=== PATIENT | male | born 1970 | race Caucasian/White ===

== ENCOUNTER → 2017-06-12 | Outpatient (CLI) | payer MEDICAID | LOC: ZCOL.LAB 23:08 | DX: E11.621 Type 2 diabetes mellitus with foot ulcer (principal) ==

== ENCOUNTER → 2017-07-29 | Outpatient (CLI) | payer MEDICAID | LOC: COL.RAD 13:30 | DX: L02.612 Cutaneous abscess of left foot (principal); L03.116 Cellulitis of left lower limb; M14.672 Charcot's joint, left ankle and foot; M86.8X7 Other osteomyelitis, ankle and foot; I73.9 Peripheral vascular disease, unspecified | CPT/HCPCS: Q9967 ==

== ENCOUNTER 2017-08-12 09:13 | Day surgery (SDC) | payer MEDICAID ==
[2017-08-12] VITALS (12 sets, daily range): BP systolic 132–1388; BP diastolic 76–88; PULSE 86–105; TEMP 97.4
[~2017-08-12] VITALS: Ht 188 cm; Wt 95.1 kg
[2017-08-12] MEDS ORDERED: GLUCOTROL10 MG PO (09:28)
[2017-08-12] MEDS ORDERED: JANUVIA25 MG PO (09:29)
[2017-08-12] MEDS ORDERED: COZAAR 50MG50 MG/TAB PO (09:29)
[2017-08-12] MEDS ORDERED: GLUCOPHAGE500 MG/TAB PO (09:30)
[2017-08-12 10:08] LABS: HEMATOCRIT 29.2 % (42.0-52.0); HEMOGLOBIN 9.9 g/dl (13.5-18.0); MEAN CELL VOLUME 85 fl (80.0-100.0); MEAN CORPUSCULAR HEMOGLOBIN 29 pg (27.0-31.0); MEAN CORPUSCULAR HGB CONC 34 g/dl (33.0-37.0); MEAN PLATELET VOLUME 7.9 fl (7.4-10.4); PLATELET COUNT 352 K/mm3 (130-400); RED BLOOD COUNT 3.45 M/mm3 (4.20-5.60); REDCELL DISTRIBUTION WIDTH-CV 12.9 % (11.5-14.5)
[2017-08-12 10:17] LABS: CREATININE, serum 0.79 mg/dL (0.66-1.25)
== END 2017-08-12 17:35 | disposition home or self-care (01) ==
LOC: COL.CAR 09:13
PROVIDERS: Radiology Diagnostic Radiology
DX: I70.92 Chronic total occlusion of artery of the extremities (principal)
CPT/HCPCS: C1724; C1725; C1760; C1769; C1773; C1887; C1894; J1644; J2250; J2704; J3010; J7030; Q9967

== ENCOUNTER 2017-08-15 11:08 | Inpatient (IN) | payer MEDICAID ==
[~2017-08-15] VITALS: Ht 188 cm; Wt 95.4 kg
[~2017-08-15 11:08] MED LIST: COZAAR 50MG50 MG/TAB PO; GLUCOPHAGE500 MG/TAB PO; GLUCOTROL10 MG PO; JANUVIA25 MG PO
[2017-08-16] VITALS (12 sets, daily range): BP systolic 100–158; BP diastolic 65–89; PULSE 91–104; TEMP 98.1–99.4
[2017-08-16] MEDS ORDERED: JANUVIA 100MG100 MG PO (05:34)
[2017-08-16] MEDS ORDERED: HERBAL TEA PO (11:02)
[2017-08-16] MEDS ORDERED: [UNRECOGNIZED DRUG - OTHER] PO (11:02)
[2017-08-16] MEDS ORDERED: SEPTRA DS 8001 TAB PO (11:06)
[2017-08-17 01:29] VITALS: BP 130/71; PULSE 95; TEMP 98.5
[2017-08-17 05:11] VITALS: BP 133/78; PULSE 105; TEMP 98.7
[2017-08-17 09:02] LABS: HEMATOCRIT 22.8 % (42.0-52.0); HEMOGLOBIN 7.7 g/dl (13.5-18.0)
[2017-08-17 11:35] VITALS: BP 142/81; PULSE 105; TEMP 99.4
[2017-08-17 16:00] VITALS: BP 146/81; PULSE 113; TEMP 98.6
[2017-08-17 19:00] VITALS: BP 153/87; PULSE 118; TEMP 99.7
[2017-08-17 21:26] VITALS: BP 163/82; PULSE 120; TEMP 99.3
[2017-08-18] VITALS (16 sets, daily range): BP systolic 119–152; BP diastolic 64–80; PULSE 90–124; TEMP 98–99.7
[2017-08-18 08:10] LABS: HEMATOCRIT 20.8 % (42.0-52.0); HEMOGLOBIN 6.9 g/dl (13.5-18.0)
[2017-08-18 18:30] LABS: HEMATOCRIT 27.5 % (42.0-52.0); HEMOGLOBIN 9.1 g/dl (13.5-18.0)
[2017-08-19 01:33] VITALS: BP 138/67; PULSE 107; TEMP 98.4
[2017-08-19 05:24] VITALS: BP 145/71; PULSE 104; TEMP 98.8
[2017-08-19 11:14] VITALS: BP 140/68; PULSE 98; TEMP 98.6
[2017-08-19 14:38] VITALS: BP 137/66; PULSE 102; TEMP 98.7
[2017-08-20] MEDS ORDERED: ASPI325T6 PO (14:57)
[2017-08-20] MEDS ORDERED: TYLENOL 325MG325 MG PO (14:57)
[2017-08-20] MEDS ORDERED: ULTRAM 50MG TAB50 MG PO (14:59)
[2017-08-20] MEDS ORDERED: ROXICODONE 55 MG/TAB PO (14:59)
== END 2017-08-19 18:54 | DRG 617 ==
LOC: SURG 08-16 09:30 → INPTSU 08-16 09:30 → SURG 08-16 10:30 → INPTSU 08-16 15:35 → SURG 08-19 18:54
PROVIDERS: Orthopaedic Surgery
PROC: 0Y6J0Z1 Detachment at Left Lower Leg, High, Open Approach (ICD-10-PCS; principal; 2017-08-16 10:30)
DX: E11.621 Type 2 diabetes mellitus with foot ulcer (principal); L97.428 Non-pressure chronic ulcer of left heel and midfoot with other specified severity; M86.172 Other acute osteomyelitis, left ankle and foot; L03.116 Cellulitis of left lower limb; E11.69 Type 2 diabetes mellitus with other specified complication; I10 Essential (primary) hypertension; E11.42 Type 2 diabetes mellitus with diabetic polyneuropathy
CPT/HCPCS: A9284; J0690; J1815; J2175; J2250; J2270; J2405; J2704; J3010; J7030; P9016

== ENCOUNTER 2017-08-19 15:31 | Inpatient (IN) | payer MEDICAID, OTHER ==
[~2017-08-19] VITALS: Ht 188 cm; Wt 92.4 kg
[~2017-08-19 15:31] MED LIST changes: +HERBAL TEA PO; +JANUVIA 100MG100 MG PO; +SEPTRA DS 8001 TAB PO; +[UNRECOGNIZED DRUG - OTHER] PO
[2017-08-19 20:33] VITALS: BP 133/75; PULSE 100; TEMP 98.2
[2017-08-20 06:00] VITALS: BP 140/79; PULSE 105; TEMP 99.4
[2017-08-20] MEDS ORDERED: ASPI325T6 PO (14:57)
[2017-08-20] MEDS ORDERED: TYLENOL 325MG325 MG PO (14:57)
[2017-08-20] MEDS ORDERED: ROXICODONE 55 MG/TAB PO (14:59)
[2017-08-20] MEDS ORDERED: ULTRAM 50MG TAB50 MG PO (14:59)
[2017-08-20 17:41] VITALS: BP 137/80; PULSE 104; TEMP 98.4
[2017-08-21 06:04] VITALS: BP 153/81; PULSE 104; TEMP 97.6
[2017-08-21 07:15] LABS: BASO % 0.2 % (0.0-2.0); EOS # 0.2 (0.0-0.7); EOS % 2.1 % (0-4.0); GRAN # 5.2 (1.4-6.5); GRAN % 62.9 % (42.2-75.2); LYMPH # 1.9 (1.2-3.4); LYMPH % 22.3 % (20.0-51.0); MEAN CELL VOLUME 86 fl (80.0-100.0); MEAN CORPUSCULAR HGB CONC 33 g/dl (33.0-37.0); MEAN PLATELET VOLUME 8.3 fl (7.4-10.4); MONO % 12.1 % (1.7-9.3); PLATELET COUNT 327 K/mm3 (130-400); RED BLOOD COUNT 2.95 M/mm3 (4.20-5.60); REDCELL DISTRIBUTION WIDTH-CV 13.5 % (11.5-14.5)
[2017-08-21 07:20] LABS: HEMATOCRIT 25.4 % (42.0-52.0); HEMOGLOBIN 8.3 g/dl (13.5-18.0); MEAN CORPUSCULAR HEMOGLOBIN 28 pg (27.0-31.0)
[2017-08-21 07:26] LABS: CALCIUM 8.7 mg/dL (8.4-10.2); CREATININE, serum 0.63 mg/dL (0.66-1.25); MAGNESIUM 1.6 mg/dL (1.6-2.3); POTASSIUM 3.8 mmol/L (3.4-5.0)
[2017-08-21 17:09] VITALS: BP 138/77; PULSE 104; TEMP 98.4
[2017-08-22 06:05] VITALS: BP 142/84; PULSE 100; TEMP 98.2
[2017-08-22 15:35] VITALS: BP 162/78; PULSE 102; TEMP 97.6
[2017-08-23 05:49] VITALS: BP 135/65; PULSE 82; TEMP 98.2
[2017-08-23 07:24] LABS: HEMOGLOBIN 8.5 g/dl (13.5-18.0)
[2017-08-23 16:16] VITALS: BP 152/80; PULSE 95; TEMP 98.8
[2017-08-24 05:39] VITALS: BP 128/79; PULSE 91; TEMP 98.8
[2017-08-24 16:12] VITALS: BP 108/39; PULSE 100; TEMP 99.1
[2017-08-24 16:19] VITALS: BP 141/77; PULSE 105; TEMP 99.1
[2017-08-25 06:09] VITALS: BP 138/76; PULSE 91; TEMP 98.4
[2017-08-25 15:44] VITALS: BP 120/73; PULSE 89; TEMP 98.2
[2017-08-26 05:28] VITALS: BP 143/77; PULSE 86; TEMP 97.9
[2017-08-26 16:21] VITALS: BP 122/72; PULSE 98; TEMP 97.6
[2017-08-27 06:00] VITALS: BP 146/84; PULSE 88; TEMP 97.5
[2017-08-27 16:05] VITALS: BP 132/77; PULSE 97; TEMP 98.7
[2017-08-28 05:39] VITALS: BP 149/89; PULSE 87; TEMP 97.2
[2017-08-28] MEDS ORDERED: MUCINEX 60600 MG/TA1 PO (12:14)
[2017-08-28] MEDS ORDERED: FERROUS SU325 MG/TAB PO (12:14)
[2017-08-28] MEDS ORDERED: GLUCOSE TEST ST1 DEV MC (12:15)
[2017-08-28] MEDS ORDERED: LANCETS MC (12:15)
[2017-08-28] MEDS ORDERED: LEVEMIR FLEX100 U/ML SQ (12:15)
[2017-08-28] MEDS ORDERED: GLUCAGON EMERGEN1 M1 SQ (12:15)
[2017-08-28] MEDS ORDERED: FREESTYLE PREC1 EAC5 MC (12:15)
== END 2017-08-28 17:30 | disposition home or self-care (01) | DRG 560 ==
PROVIDERS: Internal Medicine
DX: Z47.81 Encounter for orthopedic aftercare following surgical amputation (principal); M86.672 Other chronic osteomyelitis, left ankle and foot; E11.621 Type 2 diabetes mellitus with foot ulcer; E11.69 Type 2 diabetes mellitus with other specified complication; I10 Essential (primary) hypertension; Z89.512 Acquired absence of left leg below knee; E11.65 Type 2 diabetes mellitus with hyperglycemia; D64.9 Anemia, unspecified
CPT/HCPCS: 99222-AI; 99232-AI; 99239; J1815

== ENCOUNTER 2020-06-22 15:46 | Inpatient (IN) | payer MEDICARE, OTHER ==
[~2020-06-22] VITALS: Ht 188 cm; Wt 95.7 kg
[~2020-06-22 15:46] MED LIST changes: +ASPI325T6 PO; +FERROUS SU325 MG/TAB PO; +FREESTYLE PREC1 EAC5 MC; +GLUCAGON EMERGEN1 M1 SQ; +GLUCOSE TEST ST1 DEV MC; +LANCETS MC; +LEVEMIR FLEX100 U/ML SQ; +MUCINEX 60600 MG/TA1 PO; +ROXICODONE 55 MG/TAB PO; +TYLENOL 325MG325 MG PO; +ULTRAM 50MG TAB50 MG PO
--- NOTE | 2020-06-22 19:00 | NUR ---
PT ARRIVES TO ROOM 348 VIA W/C. IS ALERT AND ORIENTED X4. BROUGHT HOME MEDS WITH HIM. HAS HX OF LEFT BKA 2019. HAS WOUND TO RIGHT FOOT.
[2020-06-22] MEDS ORDERED: ASPIRIN E.C. 8181 MG PO (19:43)
[2020-06-22] MEDS ORDERED: MEGARED OMEGA-1 EAC5 PO (19:48)
[2020-06-22] MEDS ORDERED: PLAVIX 75MG TAB75 MG PO (20:01)
[2020-06-22] MEDS ORDERED: LEVEMIR FLEX100 U/ML SQ (20:07)
[2020-06-22] MEDS ORDERED: NORVASC2.5 MG PO (20:08)
[2020-06-22] MEDS ORDERED: GLUCOPHAGE XR500 M1 PO (20:09)
[2020-06-22 21:23] LABS: BASO % 0.4 % (0.0-2.0); EOS # 0.1 (0.0-0.7); GRAN # 6.1 (1.4-6.5); GRAN % 65.8 % (42.2-75.2); HEMATOCRIT 40.3 % (42.0-52.0); HEMOGLOBIN 13.4 g/dl (13.5-18.0); LYMPH # 2.2 (1.2-3.4); LYMPH % 23.5 % (20.0-51.0); MEAN CELL VOLUME 87 fl (80.0-100.0); MEAN CORPUSCULAR HEMOGLOBIN 29 pg (27.0-31.0); MEAN CORPUSCULAR HGB CONC 33 g/dl (33.0-37.0); MEAN PLATELET VOLUME 8.3 fl (7.4-10.4); MONO # 0.9 (0.1-0.6); MONO % 9.1 % (1.7-9.3); PLATELET COUNT 353 K/mm3 (130-400); RED BLOOD COUNT 4.63 M/mm3 (4.20-5.60); REDCELL DISTRIBUTION WIDTH-CV 13.5 % (11.5-14.5)
[2020-06-22 21:34] LABS: ALBUMIN 4.7 gm/dL (3.5-5.0); BILIRUBIN,TOTAL 0.5 mg/dL (0.0-1.0); C-REACTIVE PROTEIN 2.2 mg/dL (0.0-0.9); CALCIUM 9.7 mg/dL (8.4-10.2); CREATININE, serum 1.37 (0.66-1.25); PARTIAL THROMBOPLASTIN TIME 42.6 SECONDS (26.0-37.0); POTASSIUM 4.7 mmol/L (3.4-5.0); TOTAL PROTEIN 9.2 gm/dL (6.4-8.2)
--- NOTE | 2020-06-22 22:30 | NUR ---
STARTED #18G INSYTE TO RIGHT FOREARM ON 3RD ATTEMPT. PT IS IN BED, AIR MATTRESS APPLIED TO BED FOR COMFORT. WOUND TO RIGHT FOOT CULTURED AND NEW DRSG APPLIED. IV ANTIBIOTIC INFUSING WITHOUT PROBLEM. WILL BE NPO AFTER MIDNIGHT.
--- NOTE | 2020-06-22 22:42 | NUR ---
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 WILL THEN START A MAINTENANCE REGIMEN OF 1.75 GM Q12H. WILL FOLLOW RENAL FUNCTION, MICRO, AND THERAPY PLANS FOR NEED TO ADJUST DOSING, THANK YOU FOR THIS DOSING CONSULT!
--- NOTE | 2020-06-22 23:10 | NUR ---
CONSENT FOR SURGERY SIGNED. IV INFUSING TO RIGHT FOREARM WITHOUT PROBLEM. BS=87. HAS SNACK OF GRAHM CRACKERS AND TEA.
[2020-06-22 23:52] VITALS: BP 174/91; PULSE 107; TEMP 98.4
[2020-06-23] VITALS (11 sets, daily range): BP systolic 125–167; BP diastolic 73–92; PULSE 81–100; TEMP 98–98.7
[2020-06-23 02:25] LABS: COLLECTION METHOD CLEAN CATCH
[2020-06-23 02:30] LABS: PH 5 (5-8); SQUAMOUS EPITHELIAL 0-2 /hpf; URINE APPEARANCE Clear; URINE BACTERIA None Seen /hpf; URINE BILIRUBIN Negative (NEGATIVE); URINE BLOOD Negative (NEGATIVE); URINE COLOR Straw; URINE GLUCOSE Negative (NEGATIVE); URINE KETONE Trace (NEGATIVE); URINE LEUKOCYTE ESTERASE Negative (NEGATIVE); URINE NITRATE Negative (NEGATIVE); URINE PROTEIN(semi-quant) 1+ (NEGATIVE); URINE RBC 0-2 /hpf; URINE UROBILINOGEN Negative (NEGATIVE)
--- NOTE | 2020-06-23 05:00 | NUR ---
IV Cefepime given. Pt reports eating a grahm cracker, as he felt his blood sugar was low. Reminded pt of his NPO status.
[2020-06-23 07:28] LABS: CALCIUM 8.8 mg/dL (8.4-10.2); CREATININE, serum 1.15 (0.66-1.25); POTASSIUM 3.7 mmol/L (3.4-5.0)
[2020-06-23 07:35] LABS: BASO % 0.5 % (0.0-2.0); EOS # 0.2 (0.0-0.7); EOS % 2.4 % (0-4.0); GRAN # 3.3 (1.4-6.5); GRAN % 52.1 % (42.2-75.2); HEMATOCRIT 37.5 % (42.0-52.0); HEMOGLOBIN 12.6 g/dl (13.5-18.0); LYMPH # 2.1 (1.2-3.4); LYMPH % 33.8 % (20.0-51.0); MEAN CELL VOLUME 85 fl (80.0-100.0); MEAN CORPUSCULAR HEMOGLOBIN 29 pg (27.0-31.0); MEAN CORPUSCULAR HGB CONC 34 g/dl (33.0-37.0); MEAN PLATELET VOLUME 8.5 fl (7.4-10.4); MONO # 0.7 (0.1-0.6); MONO % 10.9 % (1.7-9.3); PLATELET COUNT 323 K/mm3 (130-400); REDCELL DISTRIBUTION WIDTH-CV 13.4 % (11.5-14.5)
--- NOTE | 2020-06-23 08:00 | NUR ---
PATIENT IS A&O. VSS. REPORTS MILD DISCOMFORT IN RLE. PATIENT IS SCHEDULED FOR SURGERY LATER TODAY. CONSENT ON CHART. HEAD TO TOE ASSESSMENT COMPLETE. STUDENT NURSE WORKING WITH PATIENT TODAY, SEE CHARTING.
--- NOTE | 2020-06-23 09:18 | NUR ---
Initial visit; Patient offered praises for his nurses and care at our hospital though was witholding his opinion about some issues. Patient was interested in the Bible and thanked Pharmacy Clinical Coordinator for offering "The Lord's Prayer" and is hoping when Pharmacy Clinical Coordinator returns she will discuss some verses from the Bible with him.
--- NOTE | 2020-06-23 09:59 | NUR ---
SW met with the patient to discuss discharge plan. The patient lives in [place] with his , Olga Teague (ph#[phone]), two children, and [id number]. He reports needing assistance with ADLs and has a walker and wheelchair. He states that his helps him with his ADLs. The patient's primary care provider is MANDA Alberts and he receives his medications from [facility] in [place]. He states that he does not have Part D presciption coverage and that he is enrolled in the [employer] prescription program at [facility]. The patient does not have a DPOA-HC and he was not interested in completing one at this time. The patient plans to return home with his family upon discharge. The patient may have a transmetatarsal amputation. SW contacted the patient's , Olga Teague, to review the above information. Olga Teague confirmed the above information and states that she is comfortable with the patient returning home, as long as he is getting around okay. SATURNINO discussed home health services and its benefits. Olga Teague states that she is not sure about home health and that the patient would have to decide on this. SW to continue to follow.
--- NOTE | 2020-06-23 10:55 | NUR ---
PATIENT C/O IV PLACEMENT BUT REPORTS HE WAS A DIFFICULT STICK. CALLED HOSPITALIST TO INQUIRE ABOUT THE POSSIBILITY OF PICC PLACEMENT FOR ABX. BLOOD & WOUND CULTURES STILL PENDING. NO ELEVATED WBC. HOSPITALIST PA WILL DISCUSS WITH PHYSICIAN AND LET NURSING KNOW ABOUT PICC PLACEMENT.
--- NOTE | 2020-06-23 11:15 | NUR ---
OR CALLED AND COMING TO GET PATIENT IN 5-10 MIN. ASSISTED PATIENT TO BATHROOM, REMOVED UNDERWEAR. CHAIN & EYE GLASSES AT BEDSIDE. CONSENT ON CHART. IV FLUIDS TO GRAVITY
--- NOTE | 2020-06-23 11:29 | NUR ---
PATIENT GOING DOWN TO SURGERY VIA BED
--- NOTE | 2020-06-23 13:50 | NUR ---
PATIENT BACK IN ROOM POST OP. ORIENTED BUT A LITTLE "OUT OF IT" AFTER SURGERY. PATIENT TALKING A LOT WITH STAFF. VSS. DENIES PAIN. DRESSING TO RLE IS CD&I. BS WAS 116 IN PACU. PATIENT ASKING WHEN HE CAN EAT. NO C/O N/V. FLUIDS INFUSING INTO RIGHT FORARM IV. HEAD TO TOE ASSESSMENT COMPLETE. NO NEEDS. CALL LIGHT IN REACH.
--- NOTE | 2020-06-23 20:00 | NUR ---
PT HAS DRAINAGE ON DRSG, REINFORCED WITH ABD'S AND ANOTHER KEILA WRAP AT THIS TIME. HAS RT LEG ELEVATED ON PILLOWS AND ICE PACK IN PLACE. HAS IVF INFUSING TO RIGHT FOREARM. IS ALERT AND ORIENTED. DENIES PAIN AT THIS TIME.
--- NOTE | 2020-06-23 22:00 | NUR ---
PT STANDS AT BEDSIDE TO VOID, USES PROSTHETIC ON LEFT BKA AND BEARS MOST OF WT TO RIGHT HEEL. DENIES PAIN AT THIS TIME.
--- NOTE | 2020-06-24 00:30 | NUR ---
REDRESSED OUTER REINFORCED AREA OF RT FOOT. HAS ELEVATED ON PILLOWS.
--- NOTE | 2020-06-24 02:15 | NUR ---
MEDICATED WITH NORCO 7.5MG 2 TABS FOR PAIN AND THROBBING TO RIGHT FOOT. DRSG INTACT AT THIS TIME.
[2020-06-24 03:12] VITALS: BP 136/80; PULSE 95; TEMP 98.5
--- NOTE | 2020-06-24 07:00 | NUR ---
Medicated with Sage 7.5mg 2 tabs for right foot pain. Has called for his breakfast.
[2020-06-24 07:08] LABS: BASO # 0.1 (0.0-0.2); BASO % 0.8 % (0.0-2.0); EOS # 0.2 (0.0-0.7); EOS % 2.8 % (0-4.0); GRAN # 3.9 (1.4-6.5); GRAN % 59.6 % (42.2-75.2); LYMPH # 1.7 (1.2-3.4); MEAN CELL VOLUME 86 fl (80.0-100.0); MEAN CORPUSCULAR HEMOGLOBIN 28 pg (27.0-31.0); MEAN CORPUSCULAR HGB CONC 33 g/dl (33.0-37.0); MEAN PLATELET VOLUME 8.7 fl (7.4-10.4); MONO # 0.7 (0.1-0.6); MONO % 10.2 % (1.7-9.3); PLATELET COUNT 319 K/mm3 (130-400); RED BLOOD COUNT 3.87 M/mm3 (4.20-5.60); REDCELL DISTRIBUTION WIDTH-CV 13.3 % (11.5-14.5)
[2020-06-24 07:12] LABS: HEMATOCRIT 33.4 % (42.0-52.0)
[2020-06-24 07:16] LABS: CALCIUM 8.6 mg/dL (8.4-10.2); CREATININE, serum 1.08 (0.66-1.25)
[2020-06-24 07:33] VITALS: BP 160/85; PULSE 94; TEMP 98.2
--- NOTE | 2020-06-24 09:20 | NUR ---
SW asked the hospitalist for PT/OT to be ordered.
--- NOTE | 2020-06-24 10:21 | NUR ---
The patient is to have a transmetatarsal amputation and wound closure tomorrow, 06/25. The patient's RN notified SATURNINO that ortho is wanting the patient to have a multi podus splint. His RN contacted materials management and they do not have the splint. They recommended the [facility]. SATURNINO contacted Cecelia at the [facility] and gave her the patient's info. Cecelia reports that they will have to have one of their request forms completed and sent back to them, along with clinical notes stating the need for the splint or a script for the split for them to fill the order. Cecelia states that she will fax the request form to the surgical unit. SATURNINO updated the patient's RN. [facility] #[phone]
[2020-06-24 11:38] VITALS: BP 139/73; PULSE 80; TEMP 97.8
--- NOTE | 2020-06-24 13:43 | NUR ---
IV TO INT PER ORDERS. PATIENT RESTING IN BED. NO NEEDS AT THIS TIME. PHARMACIST IN ROOM WITH PATIENT.
--- NOTE | 2020-06-24 14:05 | NUR ---
SATURNINO followed up with Cecelia at [facility]. Cecelia reports that they have delivered the splint to the patient's room and the patient's RN signed for it. SATURNINO followed up with the patient's RN and she confirmed this.
[2020-06-24 15:46] VITALS: BP 149/71; PULSE 91; TEMP 98.2
--- NOTE | 2020-06-24 18:36 | NUR ---
PATIENT HAD AN UNEVENTFUL SHIFT. PATIENT PROVIDED WITH PAIN MEDICATION NEEDED DURING THE DAY. SINGLE WIRE SAW OPERATOR ADMINISTERED AM MEDICATIONS. PATIENT HAS CALLED FOR ASSISTANCE TO USE THE URINAL DURING DAY. WILL REPORT OFF TO ONCOMING NURSE.
--- NOTE | 2020-06-24 19:21 | NUR ---
PT RESTING QUIETLY IN BED VISITING WITH FAMILY ON PHONE. WHITE BOARD UPDATED. DENIES ANY NEEDS AT THIS TIME.
[2020-06-24 19:38] VITALS: BP 134/76; PULSE 94; TEMP 98.1
[2020-06-25] VITALS (12 sets, daily range): BP systolic 122–152; BP diastolic 69–91; PULSE 63–118; TEMP 97.8–99.7
[2020-06-25 06:45] LABS: BASO # 0.1 (0.0-0.2); BASO % 0.9 % (0.0-2.0); EOS # 0.2 (0.0-0.7); GRAN % 52.2 % (42.2-75.2); HEMOGLOBIN 10.2 g/dl (13.5-18.0); LYMPH # 1.8 (1.2-3.4); LYMPH % 32.1 % (20.0-51.0); MEAN CELL VOLUME 88 fl (80.0-100.0); MEAN CORPUSCULAR HEMOGLOBIN 29 pg (27.0-31.0); MEAN CORPUSCULAR HGB CONC 33 g/dl (33.0-37.0); MEAN PLATELET VOLUME 8.8 fl (7.4-10.4); MONO # 0.6 (0.1-0.6); MONO % 10.3 % (1.7-9.3); PLATELET COUNT 296 K/mm3 (130-400); RED BLOOD COUNT 3.52 M/mm3 (4.20-5.60); REDCELL DISTRIBUTION WIDTH-CV 13.3 % (11.5-14.5)
[2020-06-25 06:48] LABS: HEMATOCRIT 30.9 % (42.0-52.0)
[2020-06-25 06:57] LABS: CALCIUM 8.8 mg/dL (8.4-10.2); CREATININE, serum 1.02 (0.66-1.25); POTASSIUM 4.3 mmol/L (3.4-5.0)
--- NOTE | 2020-06-25 07:27 | NUR ---
PT SLEPT AT INTERVALS. MEDICATED WITH NORCO X2 AND WITH ROXICODONE X1 THIS SHIFT. INT TO R FA. BILAT LE UP ON PILLOWS. KEILA WRAP TO RIGHT FOOT IN PLACE. CALL LIGHT IN REACH.
--- NOTE | 2020-06-25 10:30 | NUR ---
Patient is back from his procedure. He went to surgery at shift change this am. Dressing to RLE is C/D/I. Patient is alert and oriented. Denies pain and nausea. Discussed the plan for today. Explained he can not put weight on his foot. No other changes at this time. Vanc trought being drawn. Call light within reach.
--- NOTE | 2020-06-25 18:30 | NUR ---
Patient has been doing well since surgery. No pain to RLE. Denies nausea. Dressing to RLE remains C/D/I. Encouraged him to keep his foot up on pillows. His insulin sliding scale has been increased to high. His home evening dose of levemir has also been restarted. No other changes at this time. Call light within reach.
--- NOTE | 2020-06-25 19:26 | NUR ---
PT RESTING IN BED. DENIES PAIN. EVENING MEAL JUST BROUGHT IN. RIGHT FOOT UP ON PILLOW WITH KEILA WRAP IN PLACE. CALL LIGHT IN PLACE.
[2020-06-26 00:11] VITALS: BP 146/79; PULSE 102; TEMP 98.4
--- NOTE | 2020-06-26 03:13 | NUR ---
SHIFT ASSESSMENT COMPLETED AT 2044. PATIENT A&O X4. HAS BEEN MEDICATED X2 WITH NORCO X2 TABS FOR INCISIONAL DISCOMFORT.
[2020-06-26 03:59] VITALS: BP 131/70; PULSE 94; TEMP 98.5
[2020-06-26 06:39] LABS: BASO % 0.3 % (0.0-2.0); EOS # 0.1 (0.0-0.7); EOS % 1.4 % (0-4.0); GRAN # 5.3 (1.4-6.5); GRAN % 62.1 % (42.2-75.2); LYMPH # 2.2 (1.2-3.4); LYMPH % 25.1 % (20.0-51.0); MEAN CELL VOLUME 86 fl (80.0-100.0); MEAN CORPUSCULAR HGB CONC 33 g/dl (33.0-37.0); MEAN PLATELET VOLUME 8.4 fl (7.4-10.4); MONO # 0.9 (0.1-0.6); MONO % 10.8 % (1.7-9.3); PLATELET COUNT 292 K/mm3 (130-400); RED BLOOD COUNT 3.23 M/mm3 (4.20-5.60); REDCELL DISTRIBUTION WIDTH-CV 13.1 % (11.5-14.5)
[2020-06-26 06:40] LABS: CALCIUM 8.4 mg/dL (8.4-10.2); CREATININE, serum 1.11 (0.66-1.25); POTASSIUM 4.2 mmol/L (3.4-5.0)
[2020-06-26 07:09] LABS: HEMATOCRIT 27.7 % (42.0-52.0); HEMOGLOBIN 9.2 g/dl (13.5-18.0); MEAN CORPUSCULAR HEMOGLOBIN 28 pg (27.0-31.0)
[2020-06-26 08:00] VITALS: BP 147/74; PULSE 106; TEMP 98.3
[2020-06-26 11:32] VITALS: BP 157/73; PULSE 105; TEMP 98.4
--- NOTE | 2020-06-26 12:39 | NUR ---
PT saw patient today. PT reported that patient is able to wear boot effectively and take good steps. Patient has concern that his doors may not be wide enough to fit his regular sized wheelchair and wanted a small size; however, patient may not fit comfortably into a smaller wheelchair. Social work will contact family to have them measure doorways to assess for appropriate size.
[2020-06-26 16:00] VITALS: BP 161/83; PULSE 102; TEMP 98.5
--- NOTE | 2020-06-26 18:30 | NUR ---
Patient has been doing well today. He has been following his restrictions with his right foot. Denies nausea. Pain controlled with norco. Patient is hoping to discharge tomorrow. He worked with PT today. Dressing to RLE remains C/D/I. He has been wearing the splint as ordered to his right foot. No other changes at this time. Call light within reach.
[2020-06-26 20:04] VITALS: BP 150/78; PULSE 96; TEMP 99.3
--- NOTE | 2020-06-26 20:56 | NUR ---
PT IN BED WITH HOB AT 15 DEGREE ANGLE. HAS PAIN IN RIGHT LOWER FOOT, RATES AT A 7/10 THAT IS SHARP AND TROBBING. GIVEN PAIN MEDICATION. CALL LIGHT WITHIN.
[2020-06-27 00:40] VITALS: BP 166/77; PULSE 100; TEMP 98.8
[2020-06-27 04:30] VITALS: BP 128/66; PULSE 90; TEMP 98
[2020-06-27 06:41] LABS: BASO % 0.5 % (0.0-2.0); CALCIUM 8.5 mg/dL (8.4-10.2); EOS # 0.2 (0.0-0.7); EOS % 2.8 % (0-4.0); GRAN # 4.3 (1.4-6.5); GRAN % 57.3 % (42.2-75.2); LYMPH % 27.3 % (20.0-51.0); MEAN CELL VOLUME 86 fl (80.0-100.0); MEAN CORPUSCULAR HGB CONC 34 g/dl (33.0-37.0); MEAN PLATELET VOLUME 8.6 fl (7.4-10.4); MONO # 0.9 (0.1-0.6); MONO % 11.6 % (1.7-9.3); PLATELET COUNT 309 K/mm3 (130-400); POTASSIUM 3.7 mmol/L (3.4-5.0); RED BLOOD COUNT 3.25 M/mm3 (4.20-5.60); REDCELL DISTRIBUTION WIDTH-CV 13.2 % (11.5-14.5)
--- NOTE | 2020-06-27 06:54 | NUR ---
PT HAD PAIN DURING THE NIGHT. PT WAS GIVEN NORCO FOR PAIN, BUT AT 0226 IT WAS TOO EARLY FOR NORCO THEREFORE, GAVE PT ROXICODONE 5MG PO. PT WAS ABLE TO GET BETTER REST. PT ALSO WAS GIVEN A SANDWICH BOX AROUND 0230. PT HAS CALL LIGHT WITHIN REACH AND BED ALARM ON.
[2020-06-27 07:07] VITALS: BP 149/73; PULSE 89; TEMP 97.9
[2020-06-27 07:32] LABS: HEMOGLOBIN 9.4 g/dl (13.5-18.0); MEAN CORPUSCULAR HEMOGLOBIN 29 pg (27.0-31.0)
--- NOTE | 2020-06-27 07:33 | NUR ---
Siitting up in bed with eyes open. Alert and oriented x4. Rates pain in right ffoot 10/13, would like pain medication if able, will administer as prescribed. Dressing to right foot CDI, splint in place. Patient has ordered breakfast. Denies additional needs.
--- NOTE | 2020-06-27 10:15 | NUR ---
Patient provided with dressing supplies to take home as his will be performing his dressing changes per Dr. Giraldo. Patient would like to speak more with the community mental health social worker as he has questions and he is curious about getting a wheelchair. Explain that I will let the community mental health social worker know. Denies additional needs. Informed Jessie, community mental health social worker, that the patient has questions for her and would like to see if he is going to get a wheel chair. Jessie says she will go talk with the patient.
[2020-06-27 11:40] VITALS: BP 143/77; PULSE 92; TEMP 98.7
--- NOTE | 2020-06-27 13:08 | NUR ---
Lying in bed in supine position. Rates pain in right leg 5/10. Patient aware that we are waiting to hear back in regards to wheel chair and then we will finalize all discharge paperwork and give him a time to let his know she can come pick him up. Patient will take nap at this time. Denies additional needs.
--- NOTE | 2020-06-27 13:35 | NUR ---
The patient is ready to d/c today. PT is recommending possible home health. SATURNINO met with the patient to review d/c plan and to discuss their recommendation. The patient states that he would be interested in home health and was agreeable to [facility]. SATURNINO contacted and faxed a referral to Sonja at [facility]. Sonja reports that they are able to accept the patient for services. The patient confirmed that he has a wheelchair, but that it is too big to get through his doorways at home. He states that he got his wheelchair at a garage sale. The patient was interested in getting a new wheelchair that is smaller and was agreeable to trying to get one from [facility]. SATURNINO contacted Violetta at [facility]. Violetta reports that they have a 20 and 16 inch wheelchair in stock. SATURNINO updated the patient. The patient would like to get the 20 inch wheelchair. SATURNINO notified and faxed the wheelchair order to Violetta at [facility]. Violetta reports that they can deliver the wheelchair to the patient's room around 1400 today. SATURNINO updated the patient and his RN. The patient is to discharge back home with his family today, 06/27, with home health services for detention/PT/OT/wound care from [facility]. SATURNINO notified and faxed d/c orders to Sonja at [facility]. SATURNINO presented and read the IM form outloud to the patient. The patient verbalized understanding and gave SATURNINO approval to sign the form on his behalf. SATURNINO provided him with a copy. No additional needs at this time.
--- NOTE | 2020-06-27 13:48 | NUR ---
Lying in bed with eyes closed. Opens eyes when name called out. Wheel chair will be here at 1400, patient informed. Review all discharge instructions with the patient. Denies questions and signs discharge paperwork. Discharge packet provided to the patient. Patient says that he has meds at pharmacy that will need brought up. Explain that I will call for them. Patient explains that his is not able to pick him up until after 1600 today. Explain that is fine. Denies additional needs or concerns. Pharmacy contacted and will bring up patient medication.
--- NOTE | 2020-06-27 14:00 | NUR ---
Meds from pharmacy returned to the patient and paperwork signed.
--- NOTE | 2020-06-27 15:51 | NUR ---
Rating pain 6/10 in right foot and would like pain medication. Administer as prescribed. Patient in wheelchair, dressed. Has all belongings together. Waiting on to arrive. Denies additional needs.
--- NOTE | 2020-06-27 16:18 | NUR ---
here to apple picker patient. Patient assisted out via wheelchair to [facility] with all personal belongings by NIMESH Wilson.
== END 2020-06-27 16:19 | disposition home health service (06) | DRG 475 ==
LOC: SURG 15:46
PROVIDERS: Orthopaedic Surgery; Physician Assistant; Student in an Organized Health Care Education/Training Program; ADMIT Internal Medicine
PROC: 0Y6M0ZB Detachment at Right Foot, Partial 2nd Ray, Open Approach (ICD-10-PCS; 2020-06-23)
PROC: 0Y6M0ZC Detachment at Right Foot, Partial 3rd Ray, Open Approach (ICD-10-PCS; 2020-06-23)
PROC: 0Y6M0Z9 Detachment at Right Foot, Partial 1st Ray, Open Approach (ICD-10-PCS; principal; 2020-06-23 12:00)
DX: T87.43 Infection of amputation stump, right lower extremity (principal); M86.8X7 Other osteomyelitis, ankle and foot; N17.9 Acute kidney failure, unspecified; E11.69 Type 2 diabetes mellitus with other specified complication; L03.032 Cellulitis of left toe; E11.40 Type 2 diabetes mellitus with diabetic neuropathy, unspecified; I10 Essential (primary) hypertension; E11.51 Type 2 diabetes mellitus with diabetic peripheral angiopathy without gangrene; Z79.4 Long term (current) use of insulin; Z89.412 Acquired absence of left great toe; Z89.422 Acquired absence of other left toe(s); Z88.8 Allergy status to other drugs, medicaments and biological substances
CPT/HCPCS: 99222-AI; 99232-AI; 99239; A9284; J0692; J1815; J2250; J2704; J2795; J3010; J3370; J7030; J7040; J7050

== ENCOUNTER 2020-07-08 19:25 | Emergency (ER) | payer MEDICARE, OTHER ==
[~2020-07-08] VITALS: Ht 188 cm; Wt 100.0 kg
[~2020-07-08 19:25] MED LIST changes: +ASPIRIN E.C. 8181 MG PO; +GLUCOPHAGE XR500 M1 PO; +MEGARED OMEGA-1 EAC5 PO; +NORVASC2.5 MG PO; +PLAVIX 75MG TAB75 MG PO
[2020-07-08 19:58] VITALS: TEMP 98.1
[2020-07-08] MEDS ORDERED: ZOFRAN ODT8 MG PO (20:47)
[2020-07-08 21:37] VITALS: BP 140/79; PULSE 89
== END 2020-07-08 21:39 | disposition home or self-care (01) ==
LOC: COL.ER 19:25
DX: M79.671 Pain in right foot (principal); R10.84 Generalized abdominal pain; I10 Essential (primary) hypertension; E11.40 Type 2 diabetes mellitus with diabetic neuropathy, unspecified; G90.09 Other idiopathic peripheral autonomic neuropathy; Z89.431 Acquired absence of right foot; Z88.8 Allergy status to other drugs, medicaments and biological substances; Z79.82 Long term (current) use of aspirin; Z79.02 Long term (current) use of antithrombotics/antiplatelets; Z79.4 Long term (current) use of insulin

== ENCOUNTER 2020-09-22 15:21 | Observation (INO) | payer MEDICARE, OTHER ==
[~2020-09-22] VITALS: Ht 188.1 cm; Wt 99.0 kg
[~2020-09-22 15:21] MED LIST changes: +ZOFRAN ODT8 MG PO
[2020-10-06] VITALS (11 sets, daily range): BP systolic 132–162; BP diastolic 75–92; PULSE 72–100; TEMP 96.9–98.6
--- NOTE | 2020-10-06 11:15 | NUR ---
PATIENT BROUGHT BACK TO [facility] VIA WHEEL CHAIR. ALERT ORIENTED, CONSENT REVIEWED AND SIGNED. PATIENT WAS ABLE TO TRANSFER HIMSELF TO CART, PLACED IN GOWN. HEART SOUNDS REGULAR, LUNG SOUNDS DIMINISHED IN BILATERAL BASES, BOWEL SOUNDS AUDIBLE. PATIENT HAS A LEFT BKA WITH PROSTETIC IN PLACE. ON RIGHT FOOT HAS PARTIAL METATARSAL AMPULATION WITH DRESSING IN PLACE. EDEMA NOTED TO RIGHT LOWER EXTREMITY. PATIENT COMPLAINS OF PAIN TO THAT AREA. IV STARTED TO LEFT FOREARM, INFUSING WITHOUT DIFFICULTY. CALL HUYNH WITHIN REACH, WILL CONTINUE TO MONITOR.
--- NOTE | 2020-10-06 11:30 | NUR ---
FINANCIAL RECRUITER MADE AWARE OF PATIENTS BLOOD SUGAR OF 329. SLIDING INSULIN SCALE ORDERS GIVEN. PER ORDERS TO GIVE PATIENT 10UNITS NOVOLOG NOW AND RECHECK BLOOD SUGAR IN 30 MINUTES.
[2020-10-06] MEDS ORDERED: GLUCOPHAGE1000 MG PO (11:59)
[2020-10-06] MEDS ORDERED: DOXYCYCLINE HY100 MG PO (12:09)
--- NOTE | 2020-10-06 12:24 | NUR ---
BLOOD SUGAR RECHECK IS 264
[2020-10-07 03:32] VITALS: BP 140/66; PULSE 93; TEMP 99.6
--- NOTE | 2020-10-07 05:05 | NUR ---
PATIENT P/O DAY 1 OF REVISIION OF RIGHT TRANSMETATARSA. PATIENT PAIN MANAGE NO PAIN MEDICATION REQUESTED. TOLERATED PO WELL, DENIES NAUDEA/VOMITIMG. RIGHT FOOT DRESSING CLEAN DRY AND INTACK. PATIENT NWB, ABLE TO TURN SELF IM BED. VITAL SIGNS STABLE. IV FLUID INFUSING. WILL CONTNUE TO MONITOR.
[2020-10-07 07:30] VITALS: BP 159/88; PULSE 95; TEMP 99
--- NOTE | 2020-10-07 09:23 | NUR ---
Initial visit; Patient thanked Operative Supervisor for offering encouragement and prayer. Operative Supervisor offered God's blessings and wished him well.
[2020-10-07] MEDS ORDERED: NORCO 325 MG-7.1 TAB PO (10:54)
--- NOTE | 2020-10-07 11:25 | NUR ---
Patient alert and oriented, answers questions appropriately. RLE with dressing/KEILA CDI. NWB to RLE. Post op exercises reviewed with patient, verbalizes understanding. No c/o at this time.
[2020-10-07 11:40] VITALS: BP 150/75; PULSE 98; TEMP 99.6
--- NOTE | 2020-10-07 17:09 | NUR ---
Discharge instructions reviewed with patient, verbalized understanding. Discharged via wheelchair to auto/home with spouse at 1700.
== END 2020-10-07 17:00 | disposition home or self-care (01) ==
LOC: SURG 10-06 07:30 → INPTSU 10-06 10:50 → SURG 10-06 11:30
PROVIDERS: ADMIT Orthopaedic Surgery
DX: T87.81 Dehiscence of amputation stump (principal); T87.53 Necrosis of amputation stump, right lower extremity; T87.43 Infection of amputation stump, right lower extremity; L97.514 Non-pressure chronic ulcer of other part of right foot with necrosis of bone; M86.8X7 Other osteomyelitis, ankle and foot; M84.674A Pathological fracture in other disease, right foot, initial encounter for fracture; E11.621 Type 2 diabetes mellitus with foot ulcer; E11.42 Type 2 diabetes mellitus with diabetic polyneuropathy; E11.65 Type 2 diabetes mellitus with hyperglycemia; E11.59 Type 2 diabetes mellitus with other circulatory complications; E78.00 Pure hypercholesterolemia, unspecified; I10 Essential (primary) hypertension; Z89.512 Acquired absence of left leg below knee; Z89.411 Acquired absence of right great toe; Z89.421 Acquired absence of other right toe(s); Z79.2 Long term (current) use of antibiotics; Z79.899 Other long term (current) drug therapy; Z79.82 Long term (current) use of aspirin; Z79.02 Long term (current) use of antithrombotics/antiplatelets; Z79.891 Long term (current) use of opiate analgesic; Z79.84 Long term (current) use of oral hypoglycemic drugs
CPT/HCPCS: A9284; C1713; G0378; J0690; J1815; J2250; J2405; J2704; J2795; J3010; J7030; J7120

== ENCOUNTER 2021-02-28 10:06 | Day surgery (SDC) | payer MEDICARE, OTHER ==
[~2021-02-28] VITALS: Ht 188 cm; Wt 99.2 kg
[~2021-02-28 10:06] MED LIST changes: +DOXYCYCLINE HY100 MG PO; +GLUCOPHAGE1000 MG PO; +NORCO 325 MG-7.1 TAB PO
[2021-02-28] MEDS ORDERED: NORVASC 5MG5 MG/TAB PO (10:25)
[2021-02-28] MEDS ORDERED: CEPHALEXIN500 M1 PO (10:26)
[2021-02-28] MEDS ORDERED: GLUCOPHAGE500 MG/TAB PO (10:26)
[2021-02-28 12:12] VITALS: BP 126/74; PULSE 75
--- NOTE | 2021-02-28 12:12 | NUR ---
Patient returns to room 5 per cart accompanied by Javi Calvin CRNA and Staci RN. Patient arouses to verbal stimlui. Dressing clean and dry on the right foot. IV fluids infusing. Temp 97.5. Room air sats 95%. Siderails up x2 and call light in reach. Allowed to rest.
[2021-02-28 12:17] VITALS: BP 124/77; PULSE 71
--- NOTE | 2021-02-28 12:17 | NUR ---
Continues to rest with eyes closed and not disturbed.
[2021-02-28 12:32] VITALS: BP 116/76; PULSE 71
--- NOTE | 2021-02-28 12:32 | NUR ---
Continues to rest with eyes closed and offers no complaints.
[2021-02-28 12:47] VITALS: BP 127/79; PULSE 73
--- NOTE | 2021-02-28 12:47 | NUR ---
Continues to rest with eyes closed and offers no complaints of pain.
[2021-02-28 13:02] VITALS: BP 122/78; PULSE 75
--- NOTE | 2021-02-28 13:02 | NUR ---
Resting and not disturbed. Wan wrap dressing dry on the right foot.
[2021-02-28 13:32] VITALS: BP 123/73; PULSE 71
--- NOTE | 2021-02-28 13:32 | NUR ---
Awake and taking water.
--- NOTE | 2021-02-28 14:32 | NUR ---
Eating applesauce and muffin. IV discontinued and site is free of redness or swelling.
--- NOTE | 2021-02-28 15:00 | NUR ---
Patient called ride to be taken home. Dresses self. Given dismissal instructions and voices understanding of these.
--- NOTE | 2021-02-28 16:49 | NUR ---
Patient dismissed to home driven by friend and taken to the car by wheelchair.
== END 2021-02-28 16:50 | disposition home or self-care (01) ==
LOC: SDCO 10:06
DX: E11.621 Type 2 diabetes mellitus with foot ulcer (principal); E11.42 Type 2 diabetes mellitus with diabetic polyneuropathy; E11.51 Type 2 diabetes mellitus with diabetic peripheral angiopathy without gangrene; L97.516 Non-pressure chronic ulcer of other part of right foot with bone involvement without evidence of necrosis; I10 Essential (primary) hypertension; Z79.84 Long term (current) use of oral hypoglycemic drugs; Z79.02 Long term (current) use of antithrombotics/antiplatelets; Z79.899 Other long term (current) drug therapy; Z79.2 Long term (current) use of antibiotics; Z89.512 Acquired absence of left leg below knee; Z89.411 Acquired absence of right great toe; Z89.421 Acquired absence of other right toe(s)
CPT/HCPCS: J0690; J1100; J2405; J2704

== ENCOUNTER → 2021-07-07 | Outpatient (CLI) | payer MEDICARE, OTHER ==
[~2021-07-07] MED LIST changes: +CEPHALEXIN500 M1 PO; +NORVASC 5MG5 MG/TAB PO
== END ==
LOC: ZCOL.LAB 12:34
DX: L97.419 Non-pressure chronic ulcer of right heel and midfoot with unspecified severity (principal); T81.31XD Disruption of external operation (surgical) wound, not elsewhere classified, subsequent encounter